=== PATIENT | female | born 2000 | race Caucasian/White ===

== ENCOUNTER 2022-10-31 05:23 | Emergency (ER) | payer SELFPAY ==
[~2022-10-31] VITALS: Ht 182.9 cm; Wt 81.6 kg
[2022-10-31] MEDS ORDERED: IPRATROPIUM BROM 0.5 MG/2.5ML INH SOL NEB ONE (06:30)
[2022-10-31] MEDS ORDERED: DexAMETHasone SOD PHOS 10MG/1ML VIAL INJ IM ONE (06:30)
[2022-10-31] MEDS ORDERED: ALBUTEROL SULF 2.5 MG/0.5ML(0.5%) NEB SOLN NEB ONE (06:30)
[2022-10-31 07:07] VITALS: BP 128/68
[2022-10-31] MEDS ORDERED: ALBU108A5 IN (07:37)
== END 2022-10-31 07:37 | disposition home or self-care (01) ==
LOC: ER 05:23 → EDBD 05:23 → ER 07:37
DX: J45.909 Unspecified asthma, uncomplicated (principal)
CPT/HCPCS: 94640; 96372; 99283; J1100; J7644